=== PATIENT | female | born 1985 | race Caucasian/White ===

== ENCOUNTER 2016-08-30 06:32 | Emergency (ER) | payer OTHER ==
--- NOTE | 2016-08-30 09:07 | DIAGNOSTIC IMAGING REPORT ---
PROCEDURE: CT ABD/PELVIS WITH CONTRAST CLINICAL INDICATION: Right-sided abdominal pain, initial encounter. TECHNIQUE: 125 ml of Isovue 300 were injected intravenously and axial images were obtained of the entire abdomen and pelvis with sagittal and coronal reformations. COMPARISON: None. FINDINGS: ABDOMEN: Lung base are clear. Heart size is normal. Liver, gallbladder, pancreas, spleen, adrenal glands, kidneys and abdominal aorta are unremarkable. Large amount of stool throughout the large bowel. PELVIS: Normal appendix. Uterus, adnexa and bladder are unremarkable. Trace physiologic free fluid. 1 cm fat filled umbilical hernia. Bones are unremarkable. IMPRESSION: 1. Obstipation. 2. Results discussed with Dr. Obrien All CT scans at this facility use dose modulation, iterative reconstruction, and/or weight-based dosing when appropriate to reduce radiation dose to as low as reasonably achievable.
--- NOTE | 2016-08-30 09:12 | ED ORDER SUMMARY ---
..... Patient: KEELEY RAINEY OrderSheet [facility] VisitID: [id number] [place] [address] 31y, F Registration Date/Time: 08/30/2016 ORDER SHEET Weight: 102.0 kg (stated) Allergies: No Known Drug Allergy GENERAL ORDERS: CBC w Diff Urgent (06:51 08/30/2016 CBradburn R.N. per protocol) (Ack 6:54 AMcQuoid ER Tech1) (6:55 AMcQuoid ER Tech1) UA-Culture if indicated Urgent (06:08/30/2016 CBradburn R.N. per protocol) (Ack 6:54 AMcQuoid ER Tech1) (7:03 MWinterer R.N.) Urine Urgent (06:08/30/2016 CBradburn R.N. per protocol) (Ack 6:54 AMcQuoid ER Tech1) (7:03 MWinterer R.N.) CMP Urgent (06:08/30/2016 CBradburn R.N. per protocol) (Ack 6:54 AMcQuoid ER Tech1) (6:55 AMcQuoid ER Tech1) CT Abd/Pel w Cont (No) (N/A) Urgent (07:08/30/2016 Ana ABDALLA) (Ack 7:30 RKaruga) (8:59 RKaruga) MEDICATION ORDERS: IV FLUIDS: Dilaudid IV 0.5 mg (NOW) (07:08/30/2016 Ana ABDALLA) (Ack 7:29 MWinterer R.N.) (7:46 MWinterer R.N.) Zofran IV 4 mg (NOW) (07:08/30/2016 Ana ABDALLA) (Ack 7:29 MWinterer R.N.) (7:45 MWinterer R.N.) IV NS : initial bolus none -, then 500 mL/hr for 3h (NOW); Routine (07:08/30/2016 Ana ABDALLA) (Ack 7:29 MWinterer R.N.) (7:45 MWinterer R.N.) ORDER SHEET NOTES: [Electronically signed by Adina Mariscal R.N. (14:00 08/30/2016)] [Electronically signed by Hari Obrien MD (00:17 08/31/2016)] [Electronically locked/signed by Adina Mariscal R.N. (14:00 08/30/2016)]
--- NOTE | 2016-08-30 09:12 | ED CLINICAL REPORT ---
Clinical Report - Physicians/Mid Levels [facility] [address] [place] [address] 08/30/2016 6:36 Patient: KEELEY RAINEY Time Seen: 07:18 Aug 30 2016. Arrived- By private vehicle. Historian- patient. CPT: ER phys charges level 5 (#[id number]). HISTORY OF PRESENT ILLNESS Chief Complaint: ABDOMINAL PAIN. At its maximum, severity described as moderate. When seen in the E.D., severity described as moderate. Modifying factors- worsened by movement. Relieved by rest. It is described as "pain" and it is described as located in the right lower quadrant and in the lower abdomen. This started 3 days [employer]; Onset was gradual. Symptoms still present (3 days). She has had nausea. She has had abdominal pain (3 days - worsening today). The pain is described as located in the lower abdomen and associated with nausea. No diarrhea or constipation. This did not begin just [employer] and is still present. No nausea, vomiting or diarrhea. She has had loss of appetite. No recent travel. Similar symptoms previously: None. Recent medical care: Not recently seen/assessed. REVIEW OF SYSTEMS No constipation, black stools, hematemesis, difficulty with urination or pain with urination. No urinary frequency, fever, sore throat, chest pain or difficulty breathing. No cough, joint pain, skin rash, chills or back pain. Denies current . All systems otherwise negative, except as recorded above. PAST HISTORY Sprain. Gastroenteritis. Febrile Illness. Tetanus Status. Immunizations. Myofascial Strain. Acute Pain. LNMP - Last Normal Menstrual Period. Dental Abscess Dental Pain [Inactive]. ADDITIONAL SURGERIES: Tonsillectomy. Medications: Methadone HCl Oral (Tablet 10 mg) 1/2 tablet, BID. Percocet Oral 5/325 mg, 4x a day. Allergies: No Known Drug Allergy. SOCIAL HISTORY Never smoker. No alcohol use or drug use. ADDITIONAL NOTES The nursing notes have been reviewed. PHYSICAL EXAM Vital Signs: 08/30/2016 06:42 BP: 137/92. HR: 115. RR: 18. O2 saturation: 100%. Temp: 97.9 F. Pain level now: 6/10. Appearance: Alert. Anxious. Patient in mild distress. Eyes: Pupils equal, round and reactive to light. Eyes normal inspection. ENT: Ears normal. Nose normal. Pharynx normal. Neck: Normal inspection. Neck supple. CVS: Normal heart rate and rhythm. Heart sounds normal. Pulses normal. Respiratory: No respiratory distress. Breath sounds normal. Chest nontender. Abdomen: Soft. Moderate tenderness in the right lower quadrant. Abnormal bowel sounds: diminished. No mass. Back: Normal inspection. No CVA tenderness. Skin: Skin warm. Normal skin color. No rash. Extremities: Extremities exhibit normal ROM. No lower extremity edema. Neuro: Oriented X 3. No motor deficit. No sensory deficit. Reflexes normal. LABS, X-RAYS, AND EKG Abdominal CT: Appendix normal. Obstipation. Abdominal CT performed with IV contrast. The study was interpreted by the radiologist and discussed with the radiologist. Laboratory Tests: UA-Culture if indicated: (PIETER: 08/30/2016 06:45) ( [facility] 08/30/2016 07:06) Final results Test Result Flag Units (Reference) URINE COLOR YELLOW URINE APPEARANCE CLEAR URINE GLUCOSE NEGATIVE (NEGATIVE) URINE BILIRUBIN NEGATIVE (NEGATIVE) URINE KETONE NEGATIVE (NEGATIVE) URINE SPECIFIC GRAVITY <= 1.005 L (1.010-1.030) URINE PH 6.0 (5.0-8.0) URINE PROTEIN NEGATIVE (NEGATIVE) URINE UROBILINOGEN 0.2 EU/dL (0.2-1.0) URINE NITRITE NEGATIVE (NEGATIVE) URINE BLOOD TRACE-LYSED (NEGATIVE) URINE LEUK ESTERASE NEGATIVE (NEGATIVE) URINE RBC 0-1 rbc/hpf (0-1) URINE WBC 0-1 wbc/hpf (0-1) URINE EPITHELIAL CELLS 1-3 EPI/hpf (0-5) URINE BACTERIA TRACE (<1+) (NONE SEEN) URINE COMMENT CULT NOT INDICATED URINE CULTURES ARE SET-UP BASED ON THE FOLLOWING CRITERIA:POSITIVE NITRITEPOSITIVE LEUKOCYTE ESTERASEGREATER THAN 10 WHITE BLOOD CELLSMODERATE (2+) OR GREATER BACTERIA Urine: (PIETER: 08/30/2016 06:45) ( [facility] 08/30/2016 06:59) Final results Test Result Flag Units (Reference) URINE NEGATIVE CBC w Diff: (PIETER: 08/30/2016 06:45) ( MsgRcvd 08/30/2016 06:59) Final results Test Result Flag Units (Reference) WHITE BLOOD COUNT 8.1 K/uL (4.5-11.5) RED BLOOD COUNT 4.40 M/uL (4.00-5.20) HEMOGLOBIN 12.6 gm/dL (12.0-16.0) HEMATOCRIT 37.8 % (36.0-46.0) MEAN CELL VOLUME 86 fL (80-100) MEAN CORPUSCULAR HGB 29 pg (26-34) MEAN CORPUSCULAR HGB CONC 33 g/dL (31-37) RED CELL DISTRIBUTION WIDTH 14.2 % (11.6-14.8) PLATELET COUNT 274 K/uL (150-400) NEUTROPHIL % 63.1 % (50-75) LYMPH % 30.4 % (25-40) MONO % 4.4 % (3-14) EOSINOPHIL % 1.5 % (0-4) BASOPHIL % 0.6 % (0-2) CMP: (PIETER: 08/30/2016 06:45) ( MsgRcvd 08/30/2016 07:32) Final results Test Result Flag Units (Reference) GLUCOSE 101 mg/dL (70-110) BUN 9 mg/dL (7-18) CREATININE 0.8 mg/dL (0.6-1.3) Estimated GFR >60 mL/min Estimated GFR- >60 mL/min Note: Persistent reduction over 3 months in eGFR<60 mL/min/1.73 m2 defines CKD. Patients with eGFR values>=60 mL/min/1.73 m2 may also have CKD if evidence ofpersistent proteinuria. Additional information may be foundat www.kidney.org. SODIUM 146 H mmol/L (136-145) POTASSIUM 3.9 mmol/L (3.5-5.1) CHLORIDE 110 H mmol/L (98-107) CARBON DIOXIDE 24 mmol/L (21-32) CALCIUM 8.5 mg/dL (8.5-10.1) TOTAL PROTEIN 7.3 g/dL (6.4-8.2) ALBUMIN 3.8 g/dL (3.3-5.0) BILIRUBIN, TOTAL 0.3 mg/dL (0.0-1.0) ALKALINE PHOSPHATASE 91 U/L (46-116) AST (SGOT) 20 U/L (15-37) ALT (SGPT) 29 U/L (12-78) . PROGRESS AND PROCEDURES Course of Care: IV NS Dilaudid 0.5 mg IV Zofran 4 mg IV Patient is stable. Symptoms better. Patient/family counseled. Disposition: Discharged. Condition: stable and improved. CLINICAL IMPRESSION Acute right lower quadrant abdominal pain of unknown cause. INSTRUCTIONS No strenuous activity. Rest. Warnings: Further evaluation is necessary. GENERAL WARNINGS: Return or contact your physician immediately if your condition worsens or changes unexpectedly, if not improving as expected, or if other problems arise. Prescription Medications: Hydrocodone/APAP 5mg / 325mg: take 1-2 orally every 6 hours as needed for pain. Dispense ten (10). No refill. Zofran (orally disintegrating tablets) 4 mg: take 1 orally every 4 hours as needed for nausea. Dispense five (5). GoLytely 4 oz po every 10-15 minutes until gone. # 1 jug. Follow-up: Return to the emergency department today if not better. Follow up with your doctor in five days. Call for an appointment. Understanding of the discharge instructions verbalized by patient. (Electronically signed by Hari Obrien MD 08/31/2016 0:17)
--- NOTE | 2016-08-30 09:12 | ED ORDER SUMMARY ---
..... Patient: KEELEY RAINEY OrderSheet [facility] VisitID: [id number] [place] [address] 31y, F Registration Date/Time: 08/30/2016 ORDER SHEET Weight: 102.0 kg (stated) Allergies: No Known Drug Allergy GENERAL ORDERS: CBC w Diff Urgent (06:51 08/30/2016 CBradburn R.N. per protocol) (Ack 6:54 AMcQuoid ER Tech1) (6:55 AMcQuoid ER Tech1) UA-Culture if indicated Urgent (06:08/30/2016 CBradburn R.N. per protocol) (Ack 6:54 AMcQuoid ER Tech1) (7:03 MWinterer R.N.) Urine Urgent (06:08/30/2016 CBradburn R.N. per protocol) (Ack 6:54 AMcQuoid ER Tech1) (7:03 MWinterer R.N.) CMP Urgent (06:08/30/2016 CBradburn R.N. per protocol) (Ack 6:54 AMcQuoid ER Tech1) (6:55 AMcQuoid ER Tech1) CT Abd/Pel w Cont (No) (N/A) Urgent (07:08/30/2016 Ana ABDALLA) (Ack 7:30 RKaruga) (8:59 RKaruga) MEDICATION ORDERS: IV FLUIDS: Dilaudid IV 0.5 mg (NOW) (07:08/30/2016 Ana ABDALLA) (Ack 7:29 MWinterer R.N.) (7:46 MWinterer R.N.) Zofran IV 4 mg (NOW) (07:08/30/2016 Ana ABDALLA) (Ack 7:29 MWinterer R.N.) (7:45 MWinterer R.N.) IV NS : initial bolus none -, then 500 mL/hr for 3h (NOW); Routine (07:08/30/2016 Ana ABDALLA) (Ack 7:29 MWinterer R.N.) (7:45 MWinterer R.N.) ORDER SHEET NOTES: [Electronically signed by Adina Mariscal R.N. (14:00 08/30/2016)] [Electronically signed by Hari Obrien MD (00:17 08/31/2016)] [Electronically locked/signed by Adina Mariscal R.N. (14:00 08/30/2016)]
--- NOTE | 2016-08-30 09:12 | ED NURSING NOTES ---
Clinical Report - Nurses [facility] [address] [place] [address] 08/30/2016 6:36 Patient: KEELEY RAINEY TRIAGE Triage time 06:42. Acuity: LEVEL 3. Chief Complaint: ABDOMINAL PAIN and CHILLS. --06:49 Seble Champagne R.N. 06:42 08/30/16. BP: 137/92 taken on the left arm, while lying. HR: 115 (regular and tachycardic). RR: 18 (regular and unlabored). O2 saturation: 100% on room air. Temp: 97.9 F (oral). Pain level now: 10/04. --06:49 Seble Champagne R.N. Weight: 102 kg stated. Height/Length: 71 inches Per Patient. BMI: 31.4. --06:45 Seble Champagne R.N. Medications Methadone HCl Oral (Tablet 10 mg) 1/2 tablet, BID. Percocet Oral 5/325 mg, 4x a day. --06:46 Seble Chapmagne R.N. Allergies No Known Drug Allergy. --06:47 Seble Champagne R.N. History Arrived by private vehicle. Historian: patient. Primary physician (lawanda). Onset was gradual. Symptoms still present (3 days). She has had nausea. She has had abdominal pain (3 days - worsening today). The pain is described as located in the lower abdomen and associated with nausea. No diarrhea or constipation. PAST MEDICAL HX: Last normal menstrual period was 2 weeks ago. 2. Para 2. SOCIAL HX: Never smoker. No alcohol use or drug use. SELF HARM ASSESSMENT: A self harm assessment was performed. The patient answered "no" to the question "Have you recently felt down, depressed, or hopeless?", "Have you noticed less interest or pleasure in doing things?", "Do you have thoughts of harming or killing yourself?", "Are you here because you tried to hurt yourself?", "Have you ever tried to hurt yourself before today?", "Have you recently had thoughts about harming or killing others?" and "Do you have any dangerous items in your possession?". --06:49 Seble Champagne R.N. PROBLEMS: Sprain. Gastroenteritis. Febrile Illness. Tetanus Status. Immunizations. Myofascial Strain. Acute Pain. LNMP - Last Normal Menstrual Period. --06:47 Seble Champagne R.N. Dental Abscess [RuleOut]. --06:47 Seble Champagne R.N. Dental Pain [Inactive]. --06:47 Seble Champagne R.N. ADDITIONAL SURGERIES: Tonsillectomy. --06:47 Seble Champagne R.N. Interventions ID band on patient. --06:49 Seble Champagne R.N. PHYSICAL ASSESSMENT Ambulatory to room. GENERAL / NEURO / PSYCH: Alert. Oriented X 4. Appears in pain. RESPIRATORY: Respirations not labored. Breath sounds within normal limits. CVS: Normal sinus rhythm noted. Capillary refill less than 2 seconds. GI / : The patient has had nausea. Abdomen soft. Bowel sounds within normal limits. SKIN: Skin is warm and dry. --06:49 Seble Champagne R.N. NURSING PROGRESS NOTES 06:50 08/30/2016 Site #1 started via IV in the left antecubital space with an 20g angiocath, with aseptic technique and good blood return; one attempt. Blood drawn: rainbow set. Labeled in the presence of the patient and sent to the lab. Saline lock flushed with 10 mL saline. --06:50 Seble Champagne R.N. Patient gowned. Two patient identifiers checked. Call light placed in reach. Side rails up x 1. Bed placed in lowest position. Brakes of bed on. --06:50 Seble Champagne R.N. Patient ready for evaluation- chart flagged. --06:50 Seble Champagne R.N. 07:45 08/30/16. BP: 128/83. HR: 67. RR: 16. O2 saturation: 100% on room air. Pain level now: 10/04. --07:45 Adina Mariscal R.N. 07:45 08/30/2016 Started bag #1 1000 mL IV Fluids IV NS (Saline); at 500 mL/hr over 2 hour(s) via site #1 via IV pump. Allergies verified and confirmed 5 rights. IV patency established. IV site checked: no pain, redness, or swelling. IV flushed thoroughly pre- and post-medication administration. --07:45 Adina Mariscal R.N. 07:45 08/30/2016 Zofran (Ondansetron HCl) IVP 4 mg given over 1 minute(s) via site #1. Allergies verified and confirmed 5 rights. IV patency established. IV site checked: no pain, redness, or swelling. IV flushed thoroughly pre- and post-medication administration. IVP given by RN. --07:45 Adina Mariscal R.N. 07:46 08/30/2016 Dilaudid (HYDROmorphone HCl PF) IVP 0.5 mg given over 1 minute(s) via site #1. Allergies verified, confirmed 5 rights and sedative warning given to the patient. IV patency established. IV site checked: no pain, redness, or swelling. IV flushed thoroughly pre- and post-medication administration. IVP given by RN. --07:46 Adina Mariscal R.N. 07:46 08/30/16. Pulse oximeter and NIBP monitor placed on patient; monitor alarms on. --07:46 Adina Mariscal R.N. ( Patient was transported to CT scan by [facility] and is now back from CT scan.). --08:30 [facility] 09:00 08/30/2016 Dilaudid (HYDROmorphone HCl PF) IVP 0.5 mg given over 1 minute(s) via site #1. Allergies verified, confirmed 5 rights and sedative warning given to the patient. IV patency established. IV site checked: no pain, redness, or swelling. IV flushed thoroughly pre- and post-medication administration. IVP given by RN (per VO from ED MD). --09:00 Adina Mariscal R.N. 09:11 08/30/2016 Dilaudid IVP Response: no adverse reaction pain is improving. --09:11 Adina Mariscal R.N. DISPOSITION / DISCHARGE 13:58 08/30/16. BP: 116/56. HR: 67. RR: 18. O2 saturation: 100% on room air. Temp: 98.3 F (oral). Pain level now: 0/10. --13:59 Adina Mariscal R.N. Departure time: 09:40 Aug 30 2016. Condition at departure: improved and stable. No learning barriers present. Discharge instructions provided and reviewed with the patient. Reviewed medication(s) side effects, precautions and dosing information. Prescription(s) given to the patient. Patient verbalized understanding. Written instructions provided in Finnish. The patient was discharged by the physician. She was discharged home and accompanied by data specialist. She left the Emergency Department ambulatory and via private vehicle. Envelope Maker driving. --13:59 Adina Mariscal R.N. 09:35 08/30/2016 Site #1 removed upon discharge. Catheter intact. Manual pressure and bandage applied. --13:59 Adina Mariscal R.N. 09:35 08/30/2016 IV Fluids IV NS Discontinued: bag #1 discontinued upon discharge. Total amount infused: 800 mL. IV patency established. IV site checked: no pain, redness, or swelling. IV flushed thoroughly. --14:00 Adina Mariscal R.N. Locked/Released at 08/30/2016 14:00 by Adina Mariscal R.N.
--- NOTE | 2016-08-30 09:12 | ED CLINICAL REPORT ---
Clinical Report - Physicians/Mid Levels [facility] [address] [place] [address] 08/30/2016 6:36 Patient: KEELEY RAINEY Time Seen: 07:18 Aug 30 2016. Arrived- By private vehicle. Historian- patient. CPT: ER phys charges level 5 (#[id number]). HISTORY OF PRESENT ILLNESS Chief Complaint: ABDOMINAL PAIN. At its maximum, severity described as moderate. When seen in the E.D., severity described as moderate. Modifying factors- worsened by movement. Relieved by rest. It is described as "pain" and it is described as located in the right lower quadrant and in the lower abdomen. This started 3 days [employer]; Onset was gradual. Symptoms still present (3 days). She has had nausea. She has had abdominal pain (3 days - worsening today). The pain is described as located in the lower abdomen and associated with nausea. No diarrhea or constipation. This did not begin just [employer] and is still present. No nausea, vomiting or diarrhea. She has had loss of appetite. No recent travel. Similar symptoms previously: None. Recent medical care: Not recently seen/assessed. REVIEW OF SYSTEMS No constipation, black stools, hematemesis, difficulty with urination or pain with urination. No urinary frequency, fever, sore throat, chest pain or difficulty breathing. No cough, joint pain, skin rash, chills or back pain. Denies current . All systems otherwise negative, except as recorded above. PAST HISTORY Sprain. Gastroenteritis. Febrile Illness. Tetanus Status. Immunizations. Myofascial Strain. Acute Pain. LNMP - Last Normal Menstrual Period. Dental Abscess Dental Pain [Inactive]. ADDITIONAL SURGERIES: Tonsillectomy. Medications: Methadone HCl Oral (Tablet 10 mg) 1/2 tablet, BID. Percocet Oral 5/325 mg, 4x a day. Allergies: No Known Drug Allergy. SOCIAL HISTORY Never smoker. No alcohol use or drug use. ADDITIONAL NOTES The nursing notes have been reviewed. PHYSICAL EXAM Vital Signs: 08/30/2016 06:42 BP: 137/92. HR: 115. RR: 18. O2 saturation: 100%. Temp: 97.9 F. Pain level now: 6/10. Appearance: Alert. Anxious. Patient in mild distress. Eyes: Pupils equal, round and reactive to light. Eyes normal inspection. ENT: Ears normal. Nose normal. Pharynx normal. Neck: Normal inspection. Neck supple. CVS: Normal heart rate and rhythm. Heart sounds normal. Pulses normal. Respiratory: No respiratory distress. Breath sounds normal. Chest nontender. Abdomen: Soft. Moderate tenderness in the right lower quadrant. Abnormal bowel sounds: diminished. No mass. Back: Normal inspection. No CVA tenderness. Skin: Skin warm. Normal skin color. No rash. Extremities: Extremities exhibit normal ROM. No lower extremity edema. Neuro: Oriented X 3. No motor deficit. No sensory deficit. Reflexes normal. LABS, X-RAYS, AND EKG Abdominal CT: Appendix normal. Obstipation. Abdominal CT performed with IV contrast. The study was interpreted by the radiologist and discussed with the radiologist. Laboratory Tests: UA-Culture if indicated: (PIETER: 08/30/2016 06:45) ( [facility] 08/[facility] 07:06) Final results Test Result Flag Units (Reference) URINE COLOR YELLOW URINE APPEARANCE CLEAR URINE GLUCOSE NEGATIVE (NEGATIVE) URINE BILIRUBIN NEGATIVE (NEGATIVE) URINE KETONE NEGATIVE (NEGATIVE) URINE SPECIFIC GRAVITY <= 1.005 L (1.010-1.030) URINE PH 6.0 (5.0-8.0) URINE PROTEIN NEGATIVE (NEGATIVE) URINE UROBILINOGEN 0.2 EU/dL (0.2-1.0) URINE NITRITE NEGATIVE (NEGATIVE) URINE BLOOD TRACE-LYSED (NEGATIVE) URINE LEUK ESTERASE NEGATIVE (NEGATIVE) URINE RBC 0-1 rbc/hpf (0-1) URINE WBC 0-1 wbc/hpf (0-1) URINE EPITHELIAL CELLS 1-3 EPI/hpf (0-5) URINE BACTERIA TRACE (<1+) (NONE SEEN) URINE COMMENT CULT NOT INDICATED URINE CULTURES ARE SET-UP BASED ON THE FOLLOWING CRITERIA:POSITIVE NITRITEPOSITIVE LEUKOCYTE ESTERASEGREATER THAN 10 WHITE BLOOD CELLSMODERATE (2+) OR GREATER BACTERIA Urine: (PIETER: 08/30/2016 06:45) ( [facility] 08/30/2016 06:59) Final results Test Result Flag Units (Reference) URINE NEGATIVE CBC w Diff: (PIETER: 08/30/2016 06:45) ( MsgRcvd 08/30/2016 06:59) Final results Test Result Flag Units (Reference) WHITE BLOOD COUNT 8.1 K/uL (4.5-11.5) RED BLOOD COUNT 4.40 M/uL (4.00-5.20) HEMOGLOBIN 12.6 gm/dL (12.0-16.0) HEMATOCRIT 37.8 % (36.0-46.0) MEAN CELL VOLUME 86 fL (80-100) MEAN CORPUSCULAR HGB 29 pg (26-34) MEAN CORPUSCULAR HGB CONC 33 g/dL (31-37) RED CELL DISTRIBUTION WIDTH 14.2 % (11.6-14.8) PLATELET COUNT 274 K/uL (150-400) NEUTROPHIL % 63.1 % (50-75) LYMPH % 30.4 % (25-40) MONO % 4.4 % (3-14) EOSINOPHIL % 1.5 % (0-4) BASOPHIL % 0.6 % (0-2) CMP: (PIETER: 08/30/2016 06:45) ( MsgRcvd 08/30/2016 07:32) Final results Test Result Flag Units (Reference) GLUCOSE 101 mg/dL (70-110) BUN 9 mg/dL (7-18) CREATININE 0.8 mg/dL (0.6-1.3) Estimated GFR >60 mL/min Estimated GFR- >60 mL/min Note: Persistent reduction over 3 months in eGFR<60 mL/min/1.73 m2 defines CKD. Patients with eGFR values>=60 mL/min/1.73 m2 may also have CKD if evidence ofpersistent proteinuria. Additional information may be foundat www.kidney.org. SODIUM 146 H mmol/L (136-145) POTASSIUM 3.9 mmol/L (3.5-5.1) CHLORIDE 110 H mmol/L (98-107) CARBON DIOXIDE 24 mmol/L (21-32) CALCIUM 8.5 mg/dL (8.5-10.1) TOTAL PROTEIN 7.3 g/dL (6.4-8.2) ALBUMIN 3.8 g/dL (3.3-5.0) BILIRUBIN, TOTAL 0.3 mg/dL (0.0-1.0) ALKALINE PHOSPHATASE 91 U/L (46-116) AST (SGOT) 20 U/L (15-37) ALT (SGPT) 29 U/L (12-78) . PROGRESS AND PROCEDURES Course of Care: IV NS Dilaudid 0.5 mg IV Zofran 4 mg IV Patient is stable. Symptoms better. Patient/family counseled. Disposition: Discharged. Condition: stable and improved. CLINICAL IMPRESSION Acute right lower quadrant abdominal pain of unknown cause. INSTRUCTIONS No strenuous activity. Rest. Warnings: Further evaluation is necessary. GENERAL WARNINGS: Return or contact your physician immediately if your condition worsens or changes unexpectedly, if not improving as expected, or if other problems arise. Prescription Medications: Hydrocodone/APAP 5mg / 325mg: take 1-2 orally every 6 hours as needed for pain. Dispense ten (10). No refill. Zofran (orally disintegrating tablets) 4 mg: take 1 orally every 4 hours as needed for nausea. Dispense five (5). GoLytely 4 oz po every 10-15 minutes until gone. # 1 jug. Follow-up: Return to the emergency department today if not better. Follow up with your doctor in five days. Call for an appointment. Understanding of the discharge instructions verbalized by patient. (Electronically signed by Hari Obrien MD 08/31/2016 0:17)
--- NOTE | 2016-08-30 09:12 | ED NURSING NOTES ---
Clinical Report - Nurses [facility] [address] [place] [address] 08/30/2016 6:36 Patient: KEELEY RAIENY TRIAGE Triage time 06:42. Acuity: LEVEL 3. Chief Complaint: ABDOMINAL PAIN and CHILLS. --06:49 Seble Champagne R.N. 06:42 08/30/16. BP: 137/92 taken on the left arm, while lying. HR: 115 (regular and tachycardic). RR: 18 (regular and unlabored). O2 saturation: 100% on room air. Temp: 97.9 F (oral). Pain level now: 10/04. --06:49 Seble Champagne R.N. Weight: 102 kg stated. Height/Length: 71 inches Per Patient. BMI: 31.4. --06:45 Seble Champagne R.N. Medications Methadone HCl Oral (Tablet 10 mg) 1/2 tablet, BID. Percocet Oral 5/325 mg, 4x a day. --06:46 Seble Champagne R.N. Allergies No Known Drug Allergy. --06:47 Seble Champagne R.N. History Arrived by private vehicle. Historian: patient. Primary physician (lawanda). Onset was gradual. Symptoms still present (3 days). She has had nausea. She has had abdominal pain (3 days - worsening today). The pain is described as located in the lower abdomen and associated with nausea. No diarrhea or constipation. PAST MEDICAL HX: Last normal menstrual period was 2 weeks ago. 2. Para 2. SOCIAL HX: Never smoker. No alcohol use or drug use. SELF HARM ASSESSMENT: A self harm assessment was performed. The patient answered "no" to the question "Have you recently felt down, depressed, or hopeless?", "Have you noticed less interest or pleasure in doing things?", "Do you have thoughts of harming or killing yourself?", "Are you here because you tried to hurt yourself?", "Have you ever tried to hurt yourself before today?", "Have you recently had thoughts about harming or killing others?" and "Do you have any dangerous items in your possession?". --06:49 Seble Champagne R.N. PROBLEMS: Sprain. Gastroenteritis. Febrile Illness. Tetanus Status. Immunizations. Myofascial Strain. Acute Pain. LNMP - Last Normal Menstrual Period. --06:47 Seble Champagne R.N. Dental Abscess [RuleOut]. --06:47 Seble Champagne R.N. Dental Pain [Inactive]. --06:47 Seble Champagne R.N. ADDITIONAL SURGERIES: Tonsillectomy. --06:47 Seble Champagne R.N. Interventions ID band on patient. --06:49 Seble Champagne R.N. PHYSICAL ASSESSMENT Ambulatory to room. GENERAL / NEURO / PSYCH: Alert. Oriented X 4. Appears in pain. RESPIRATORY: Respirations not labored. Breath sounds within normal limits. CVS: Normal sinus rhythm noted. Capillary refill less than 2 seconds. GI / : The patient has had nausea. Abdomen soft. Bowel sounds within normal limits. SKIN: Skin is warm and dry. --06:49 Seble Champagne R.N. NURSING PROGRESS NOTES 06:50 08/30/2016 Site #1 started via IV in the left antecubital space with an 20g angiocath, with aseptic technique and good blood return; one attempt. Blood drawn: rainbow set. Labeled in the presence of the patient and sent to the lab. Saline lock flushed with 10 mL saline. --06:50 Seble Champagne R.N. Patient gowned. Two patient identifiers checked. Call light placed in reach. Side rails up x 1. Bed placed in lowest position. Brakes of bed on. --06:50 Seble Champagne R.N. Patient ready for evaluation- chart flagged. --06:50 Seble Champagne R.N. 07:45 08/30/16. BP: 128/83. HR: 67. RR: 16. O2 saturation: 100% on room air. Pain level now: 10/04. --07:45 Adina Mariscal R.N. 07:45 08/30/2016 Started bag #1 1000 mL IV Fluids IV NS (Saline); at 500 mL/hr over 2 hour(s) via site #1 via IV pump. Allergies verified and confirmed 5 rights. IV patency established. IV site checked: no pain, redness, or swelling. IV flushed thoroughly pre- and post-medication administration. --07:45 Adina Mariscal R.N. 07:45 08/30/2016 Zofran (Ondansetron HCl) IVP 4 mg given over 1 minute(s) via site #1. Allergies verified and confirmed 5 rights. IV patency established. IV site checked: no pain, redness, or swelling. IV flushed thoroughly pre- and post-medication administration. IVP given by RN. --07:45 Adina Mariscal R.N. 07:46 08/30/2016 Dilaudid (HYDROmorphone HCl PF) IVP 0.5 mg given over 1 minute(s) via site #1. Allergies verified, confirmed 5 rights and sedative warning given to the patient. IV patency established. IV site checked: no pain, redness, or swelling. IV flushed thoroughly pre- and post-medication administration. IVP given by RN. --07:46 Adina Mariscal R.N. 07:46 08/30/16. Pulse oximeter and NIBP monitor placed on patient; monitor alarms on. --07:46 Adina Mariscal R.N. ( Patient was transported to CT scan by [facility] and is now back from CT scan.). --08:[address] [facility] 09:00 08/30/2016 Dilaudid (HYDROmorphone HCl PF) IVP 0.5 mg given over 1 minute(s) via site #1. Allergies verified, confirmed 5 rights and sedative warning given to the patient. IV patency established. IV site checked: no pain, redness, or swelling. IV flushed thoroughly pre- and post-medication administration. IVP given by RN (per VO from ED MD). --09:00 Adina Mariscal R.N. 09:11 08/30/2016 Dilaudid IVP Response: no adverse reaction pain is improving. --09:11 Adina Mariscal R.N. DISPOSITION / DISCHARGE 13:58 08/30/16. BP: 116/56. HR: 67. RR: 18. O2 saturation: 100% on room air. Temp: 98.3 F (oral). Pain level now: 0/10. --13:59 Adina Mariscal R.N. Departure time: 09:40 Aug 30 2016. Condition at departure: improved and stable. No learning barriers present. Discharge instructions provided and reviewed with the patient. Reviewed medication(s) side effects, precautions and dosing information. Prescription(s) given to the patient. Patient verbalized understanding. Written instructions provided in [place]. The patient was discharged by the physician. She was discharged home and accompanied by ear nose and throat specialist. She left the Emergency Department ambulatory and via private vehicle. 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 --13:59 Adina Mariscal R.N. 09:35 08/30/2016 Site #1 removed upon discharge. Catheter intact. Manual pressure and bandage applied. --13:59 Adina Mariscal R.N. 09:35 08/30/2016 IV Fluids IV NS Discontinued: bag #1 discontinued upon discharge. Total amount infused: 800 mL. IV patency established. IV site checked: no pain, redness, or swelling. IV flushed thoroughly. --14:00 Adina Mariscal R.N. Locked/Released at 08/30/2016 14:00 by Adina Mariscal R.N.
--- NOTE | 2016-08-31 00:17 | ED DISCHARGE INSTRUCTIONS ---
Patient: KEELEY RAINEY General Instructions [facility] VisitID: [id number] [place] [address] 31y, F Registration Date/Time: 08/30/2016 Acute right lower quadrant abdominal pain of unknown cause. INSTRUCTIONS No strenuous activity. Rest. Warnings: Further evaluation is necessary. GENERAL WARNINGS: Return or contact your physician immediately if your condition worsens or changes unexpectedly, if not improving as expected, or if other problems arise. Prescription Medications: Hydrocodone/APAP 5mg / 325mg: take 1-2 orally every 6 hours as needed for pain. Dispense ten (10). No refill. Zofran (orally disintegrating tablets) 4 mg: take 1 orally every 4 hours as needed for nausea. Dispense five (5). GoLytely 4 oz po every 10-15 minutes until gone. # 1 jug. Follow-up: Return to the emergency department today if not better. Follow up with your doctor in five days. Call for an appointment. Understanding of the discharge instructions verbalized by patient. ADDITIONAL INFORMATION Abdominal Pain, Unknown Cause (Female) The exact cause of your abdominal (stomach) pain is not certain. This does not mean that this is something to worry about, or the right tests were not done. Everyone likes to know the exact cause of the problem, but sometimes with abdominal pain, there is no clear-cut cause, and this could be a good thing. The good news is that your symptoms can be treated, and you will feel better. Your condition does not seem serious now; however, sometimes the signs of a serious problem may take more time to appear. For this reason,it is important for you to watch for any new symptoms, problems,or worsening of your condition. Over the next few days, the abdominal pain may come and go, or be continuous. Other common symptoms can include nausea and vomiting. Sometimes it can be difficult to tell if you feel nauseous, you may just feel bad and not associate that feeling with nausea. Constipation, diarrhea, and a fever may go along with the pain. The pain may continue even if treated correctly over the following days. Depending on how things go, sometimes the cause can become clear and may require further or different treatment. Additional evaluations, medications, or tests may be needed. Home care Your health care provider may prescribe medications for pain, symptoms, or an infection. Follow the health care provider's instructions for taking these medications. General care Rest until your next exam. No strenuous activities. Try to find positions that ease discomfort. A small pillow placed on the abdomen may help relieve pain. Something warm on your abdomen (such as a heating pad) may help, but be careful not to burn yourself. Diet Do not force yourself to eat, especially if having cramps, vomiting, or diarrhea. Water is important so you do not get dehydrated. Soup may also be good. Sports drinks may also help, especially if they are not too acidic. Make sure you don't drink sugary drinks as this can make things worse. Take liquids in small amounts. Do not guzzle them. Caffeine sometimes makes the pain and cramping worse. Avoid dairy products if you have vomiting or diarrhea. Don't eat large amounts at a time. Wait a few minutes between bites. Eat a diet low in fiber (called a low-residue diet). Foods allowed include refined breads, white rice, fruit and vegetable juices without pulp, tender meats. These foods will pass more easily through the intestine. Avoid whole-grain foods, whole fruits and vegetables, meats, seeds and nuts, fried or fatty foods, dairy, alcohol and spicy foods until your symptoms go away. Follow-up care Follow up with your health care provider as instructed, or if your pain does not begin to improve in the next 24 hours. When to seek medical care Seek prompt medical care if any of the following occur: Pain gets worse or moves to the right lower abdomen New or worsening vomiting or diarrhea Swelling of the abdomen Unable to pass stool for more than three days Fever of 100.4F (38C) or higher, or as directed by your healthcare provider. Blood in vomit or bowel movements (dark red or black color) Jaundice (yellow color of eyes and skin) Weakness, dizziness Chest, arm, back, neck or jaw pain Unexpected vaginal bleeding or missed period Call 911 Call emergency services if any of the following occur: Trouble breathing Confusion Fainting or loss of consciousness Rapid heart rate Seizure Hydrocodone Bitartrate, Acetaminophen Oral tablet What is this medicine? ACETAMINOPHEN; HYDROCODONE (a set a YOEL surinder fen; deirdre droe KOE done) is a pain reliever. It is used to treat mild to moderate pain. How should I use this medicine? Take this medicine by mouth. Swallow it with a full glass of water. Follow the directions on the prescription label. If the medicine upsets your stomach, take the medicine with food or milk. Do not take more than you are told to take. Talk to your gravel machine operator regarding the use of this medicine in children. This medicine is not approved for use in children. What side effects may I notice from receiving this medicine? Side effects that you should report to your doctor or health specialist wound care as soon as possible: allergic reactions like skin rash, itching or hives, swelling of the face, lips, or tongue breathing problems confusion feeling faint or lightheaded, falls stomach pain yellowing of the eyes or skin Side effects that usually do not require medical attention (report to your doctor or health specialist wound care if they continue or are bothersome): nausea, vomiting stomach upset What may interact with this medicine? alcohol antihistamines isoniazid medicines for depression, anxiety, or psychotic disturbances medicines for sleep muscle relaxants naltrexone narcotic medicines (opiates) for pain phenobarbital ritonavir tramadol What if I miss a dose? If you miss a dose, take it as soon as you can. If it is almost time for your next dose, take only that dose. Do not take double or extra doses. Where should I keep my medicine? Keep out of the reach of children. This medicine can be abused. Keep your medicine in a safe place to protect it from theft. Do not share this medicine with anyone. Selling or giving away this medicine is dangerous and against the law. Store at room temperature between 15 and 30 degrees C (59 and 86 degrees F). Protect from light. Keep container tightly closed. Throw away any unused medicine after the expiration date. Discard unused medicine and used packaging carefully. Pets and children can be harmed if they find used or lost packages. What should I tell my health care provider before I take this medicine? They need to know if you have any of these conditions: brain tumor Crohn's disease, inflammatory bowel disease, or ulcerative colitis drink more than 3 alcohol-containing drinks per day drug abuse or addiction head injury heart or circulation problems kidney disease or problems going to the bathroom liver disease lung disease, asthma, or breathing problems an unusual or allergic reaction to acetaminophen, hydrocodone, other opioid analgesics, other medicines, foods, dyes, or preservatives or trying to get breast-feeding What should I watch for while using this medicine? Tell your doctor or health specialist wound care if your pain does not go away, if it gets worse, or if you have new or a different type of pain. You may develop tolerance to the medicine. Tolerance means that you will need a higher dose of the medicine for pain relief. Tolerance is normal and is expected if you take the medicine for a long time. Do not suddenly stop taking your medicine because you may develop a severe reaction. Your body becomes used to the medicine. This does NOT mean you are addicted. Addiction is a behavior related to getting and using a drug for a non-medical reason. If you have pain, you have a medical reason to take pain medicine. Your doctor will tell you how much medicine to take. If your doctor wants you to stop the medicine, the dose will be slowly lowered over time to avoid any side effects. You may get drowsy or dizzy when you first start taking the medicine or change doses. Do not drive, use machinery, or do anything that may be dangerous until you know how the medicine affects you. Stand or sit up slowly. There are different types of narcotic medicines (opiates) for pain. If you take more than one type at the same time, you may have more side effects. Give your health care provider a list of all medicines you use. Your doctor will tell you how much medicine to take. Do not take more medicine than directed. Call emergency for help if you have problems breathing. The medicine will cause constipation. Try to have a bowel movement at least every 2 to 3 days. If you do not have a bowel movement for 3 days, call your doctor or health specialist wound care. Too much acetaminophen can be very dangerous. Do not take Tylenol (acetaminophen) or medicines that contain acetaminophen with this medicine. Many non-prescription medicines contain acetaminophen. Always read the labels carefully. Ondansetron Oral disintegrating tablet What is this medicine? ONDANSETRON (on WILY se sang) is used to treat nausea and vomiting caused by chemotherapy. It is also used to prevent or treat nausea and vomiting after surgery. How should I use this medicine? These tablets are made to dissolve in the mouth. Do not try to push the tablet through the foil backing. With dry hands, peel away the foil backing and gently remove the tablet. Place the tablet in the mouth and allow it to dissolve, then swallow. While you may take these tablets with water, it is not necessary to do so. Talk to your gravel machine operator regarding the use of this medicine in children. Special care may be needed. What side effects may I notice from receiving this medicine? Side effects that you should report to your doctor or health specialist wound care as soon as possible: allergic reactions like skin rash, itching or hives, swelling of the face, lips, or tongue breathing problems dizziness fast or irregular heartbeat feeling faint or lightheaded, falls fever and chills swelling of the hands and feet tightness in the chest Side effects that usually do not require medical attention (report to your doctor or health specialist wound care if they continue or are bothersome): constipation or diarrhea headache What may interact with this medicine? Do not take this medicine with any of the following medications: -apomorphine -cisapride -dofetilide -dronedarone -pimozide -thioridazine -ziprasidone This medicine may also interact with the following medications: -carbamazepine -phenytoin -rifampicin -tramadol -other medicines that prolong the QT interval (cause an abnormal heart rhythm) What if I miss a dose? If you miss a dose, take it as soon as you can. If it is almost time for your next dose, take only that dose. Do not take double or extra doses. Where should I keep my medicine? Keep out of the reach of children. Store between 2 and 30 degrees C (36 and 86 degrees F). Throw away any unused medicine after the expiration date. What should I tell my health care provider before I take this medicine? They need to know if you have any of these conditions: heart disease history of irregular heartbeat liver disease low levels of magnesium or potassium in the blood an unusual or allergic reaction to ondansetron, granisetron, other medicines, foods, dyes, or preservatives or trying to get breast-feeding What should I watch for while using this medicine? Check with your doctor or health specialist wound care as soon as you can if you have any sign of an allergic reaction. You have been given the following additional information: Abdominal Pain, Unknown Cause, (Female) Hydrocodone Bitartrate, Acetaminophen Oral tablet Ondansetron Oral disintegrating tablet No strenuous activity. Rest. (Electronically signed by Hari Obrien MD 08/31/2016 0:17)
--- NOTE | 2016-08-31 00:17 | ED MAR SUMMARY ---
..... Medication Administration Record [facility] [address] [place] [address] Patient: KEELEY RAINEY Visit ID: [id number] 31y, F Weight: 102.0 kg Height/Length: 71 in BMI: 31.4 ALLERGIES: No Known Drug Allergy Given 07:45 08/30/2016 Adina Mariscal R.N. Medication Administered: ZOFRAN [IVP] (ONDANSETRON HCL), Dose: 4 mg IVP over 1 minute(s), Site: #1 left AC. Medication Ordered: Zofran IV 4 mg (NOW). Start 07:45 08/30/2016 Adina Mariscal R.N., Stop 09:35 08/30/2016 Adina Mariscal R.N. Medication Administered: IV NS (SALINE), Dose: IV Fluids over 2 hour(s), Rate: 500 mL/hr, Dispensed: 1000 mL bag, Site: #1 left AC. Medication Ordered: IV NS : initial bolus none -, then 500 mL/hr for 3h (NOW); Routine. Given 07:46 08/30/2016 Adina Mariscal R.N. Medication Administered: DILAUDID [IVP] (HYDROMORPHONE HCL PF), Dose: 0.5 mg IVP over 1 minute(s), Site: #1 left AC. Medication Ordered: Dilaudid IV 0.5 mg (NOW). Given 09:00 08/30/2016 Adina Mariscal R.N. Medication Administered: DILAUDID [IVP] (HYDROMORPHONE HCL PF), Dose: 0.5 mg IVP over 1 minute(s), Site: #1 left AC. Medication Ordered: Dilaudid IV 0.5 mg (NOW).
--- NOTE | 2016-08-31 00:17 | ED MED RECONCILIATION SUMMARY ---
Patient: KEELEY RAINEY Medication Reconciliation Report [facility] VisitID: [id number] [address] [place] [address] 31y, F Registration Date/Time: 08/30/2016 Weight: 102.0 kg Height/Length: 71 in. BMI: 31.4 ALLERGIES: No Known Drug Allergy The patient's Home Medications are listed below: THE FOLLOWING MEDICATIONS NEED TO BE RECONCILED: Methadone HCl Oral (10 mg) 1/2 tablet, BID Percocet Oral 5/325 mg, 4x a day The source(s) of the original Home Medication information: Not obtained. The following Medications were given to the patient in the Emergency Department: IV NS IV Fluids bolus 0, then 500 mL/hr, administered: 08/30/2016 7:45:00 AM Zofran [IVP] IVP 4 mg, administered: 08/30/2016 7:45:00 AM Dilaudid [IVP] IVP 0.5 mg, administered: 08/30/2016 7:46:00 AM Dilaudid [IVP] IVP 0.5 mg, administered: 08/30/2016 9:00:00 AM The following Medications were prescribed to the patient: Hydrocodone/APAP 5mg / 325mg: take 1-2 orally every 6 hours as needed for pain. Dispense ten (10). No refill. -- Hari Obrien MD Zofran (orally disintegrating tablets) 4 mg: take 1 orally every 4 hours as needed for nausea. Dispense five (5). -- Hari Obrien MD GoLytely 4 oz po every 10-15 minutes until gone. # 1 jug. -- Hari Obrien MD
--- NOTE | 2016-08-31 00:17 | ED MED RECONCILIATION SUMMARY ---
Patient: KEELEY RAINEY Medication Reconciliation Report [facility] VisitID: [id number] [address] [place] [address] 31y, F Registration Date/Time: 08/30/2016 Weight: 102.0 kg Height/Length: 71 in. BMI: 31.4 ALLERGIES: No Known Drug Allergy The patient's Home Medications are listed below: THE FOLLOWING MEDICATIONS NEED TO BE RECONCILED: Methadone HCl Oral (10 mg) 1/2 tablet, BID Percocet Oral 5/325 mg, 4x a day The source(s) of the original Home Medication information: Not obtained. The following Medications were given to the patient in the Emergency Department: IV NS IV Fluids bolus 0, then 500 mL/hr, administered: 08/30/2016 7:45:00 AM Zofran [IVP] IVP 4 mg, administered: 08/30/2016 7:45:00 AM Dilaudid [IVP] IVP 0.5 mg, administered: 08/30/2016 7:46:00 AM Dilaudid [IVP] IVP 0.5 mg, administered: 08/30/2016 9:00:00 AM The following Medications were prescribed to the patient: Hydrocodone/APAP 5mg / 325mg: take 1-2 orally every 6 hours as needed for pain. Dispense ten (10). No refill. -- Hari Obrien MD Zofran (orally disintegrating tablets) 4 mg: take 1 orally every 4 hours as needed for nausea. Dispense five (5). -- Hari Obrien MD GoLytely 4 oz po every 10-15 minutes until gone. # 1 jug. -- Hari Obrien MD
--- NOTE | 2016-08-31 00:17 | ED MAR SUMMARY ---
..... Medication Administration Record [facility] [address] [place] [address] Patient: KEELEY RAINEY Visit ID: [id number] 31y, F Weight: 102.0 kg Height/Length: 71 in BMI: 31.4 ALLERGIES: No Known Drug Allergy Given 07:45 08/30/2016 Adina Mariscal R.N. Medication Administered: ZOFRAN [IVP] (ONDANSETRON HCL), Dose: 4 mg IVP over 1 minute(s), Site: #1 left AC. Medication Ordered: Zofran IV 4 mg (NOW). Start 07:45 08/30/2016 Adina Mariscal R.N., Stop 09:35 08/30/2016 Adina Mariscal R.N. Medication Administered: IV NS (SALINE), Dose: IV Fluids over 2 hour(s), Rate: 500 mL/hr, Dispensed: 1000 mL bag, Site: #1 left AC. Medication Ordered: IV NS : initial bolus none -, then 500 mL/hr for 3h (NOW); Routine. Given 07:46 08/30/2016 Adina Mariscal R.N. Medication Administered: DILAUDID [IVP] (HYDROMORPHONE HCL PF), Dose: 0.5 mg IVP over 1 minute(s), Site: #1 left AC. Medication Ordered: Dilaudid IV 0.5 mg (NOW). Given 09:00 08/30/2016 Adina Mariscal R.N. Medication Administered: DILAUDID [IVP] (HYDROMORPHONE HCL PF), Dose: 0.5 mg IVP over 1 minute(s), Site: #1 left AC. Medication Ordered: Dilaudid IV 0.5 mg (NOW).
== END 2016-08-30 09:40 | disposition home or self-care (01) ==
LOC: ED SRH 06:32
DX: R10.31 Right lower quadrant pain (principal); R11.0 Nausea; Z79.891 Long term (current) use of opiate analgesic; Z79.899 Other long term (current) drug therapy
CPT/HCPCS: 90004; 90100; 93070; 95059